=== PATIENT | female | born 1995 ===

== ENCOUNTER → 2018-05-08 | Outpatient (CLI) | payer OTHER ==
[~2018-05-08] MED LIST: Naprosyn500 MG PO
[2018-05-08 16:08] LABS: BASOPHILS ABSOLUTE AUTO 0.06 K/mm3 (0.00-0.23); BASOPHILS PERCENT AUTO 1 % (0-2); EOSINOPHILS ABSOLUTE AUTO 0.09 K/mm3 (0.00-0.68); EOSINOPHILS PERCENT AUTO 1 % (0-6); Hematocrit 47.1 % (33.0-51.0); Hemoglobin 16.2 g/dL (11.5-16.0); IMMATURE GRAN ABSOLUTE AUTO 0.01 K/mm3 (0.00-0.10); IMMATURE GRAN PERCENT AUTO 0 % (0-1); LYMPHOCYTES PERCENT AUTO 23 % (21-46); MONOCYTES ABSOLUTE AUTO 0.96 K/mm3 (0.16-1.47); MONOCYTES PERCENT AUTO 13 % (4-13); Mean Corpuscular HGB 32.1 pg (26.0-34.0); Mean Corpuscular HGB Conc 34.4 g/dL (31.5-36.5); Mean Corpuscular Volume 94 fL (80-100); NEUTROPHILS ABSOLUTE AUTO 4.65 K/mm3 (1.96-9.15); NEUTROPHILS PERCENT AUTO 62 % (41-73); RDW Coefficient Variation 11.6 % (11.7-14.2); Red Blood Cell Count 5.04 M/mm3 (3.80-5.20); White Blood Cell Count 7.47 K/mm3 (4.00-11.30)
[2018-05-08 16:14] LABS: Mean Platelet Volume 10.3 fL (9.1-12.4); Platelet Count 202 K/mm3 (150-400)
[2018-05-08 16:18] LABS: Alanine Aminotransfer (ALT/SGP 19 U/L (12-78); Albumin, Blood 4.8 g/dL (3.4-5.0); Albumin/Globulin Ratio 1.3 (0.8-1.8); Alk Phos 72 U/L (50-136); Anion Gap 11 mmol/L (6-16); Aspartate Aminotrans (AST/SGOT 15 U/L (12-37); Bilirubin, Total 0.7 mg/dL (0.1-1.0); Blood Urea Nitrogen 6 mg/dL (8-24); Bun/Creatinine Ratio 9.9 (12.0-20.0); CO2, Blood 22 mmol/L (21-32); Calcium, Blood 9.4 mg/dL (8.5-10.1); Chloride, Blood 104 mmol/L (98-108); Creatinine, Blood 0.61 mg/dL (0.40-1.00); Globulin, Blood 3.6 g/dL (2.2-4.0); Glomerular Filtration Rate >60 (60-); Glucose, Blood 88 mg/dL (70-99); Sodium, Blood 137 mmol/L (136-145); Total Protein, Blood 8.4 g/dL (6.4-8.2)
== END ==
LOC: LAB 15:20 → LAB SHORT 15:20
PROVIDERS: Nurse Practitioner
DX: R10.84 Generalized abdominal pain (principal)
CPT/HCPCS: 80053; 83690; 85025; 85651